=== PATIENT | male | born 1945 | race Caucasian/White ===

== ENCOUNTER 2023-09-24 13:00 | Outpatient (CLI) | payer MEDICARE | END 2023-09-24 13:01 | disposition home or self-care (01) | LOC: CSHMRI 13:00 | PROVIDERS: ATTEND Family Medicine | DX: M47.26 Other spondylosis with radiculopathy, lumbar region (principal); M48.061 Spinal stenosis, lumbar region without neurogenic claudication | CPT/HCPCS: 72148 ==